=== PATIENT | female | born 1980 | race Caucasian/White ===

== ENCOUNTER 2016-12-30 14:21 | Emergency (ER) | payer SELFPAY ==
[~2016-12-30] VITALS: Ht 154.9 cm; Wt 81.6 kg
[2016-12-30 15:19] LABS: BILIRUBIN,URINE NEGATIVE (NEG); GLUCOSE,URINE NEGATIVE (NEG); NITRITE,URINE NEGATIVE (NEG); PROTEIN,URINE NEGATIVE (NEG-TRACE); UROBILINOGEN,URINE 0.2 mg/dL (0.2 mg/dL)
--- NOTE | 2016-12-30 15:31 | ED.ADGEN ---
Adult General Chief Complaint Chief Complaint: ABDOMINAL PAIN HPI HPI Patient is a 36 year old woman, history of irritable bowel syndrome, remote history of pancreatitis, status post cholecystectomy and appendectomy, who presents to the emergency department with a complaint of sudden onset of nausea , vomiting, and abdominal pain in the upper abdomen that began this afternoon. She states that it began around 1 PM, states that it is a crampy pain, that radiates to her back, associated with multiple episodes of emesis, food and fluid, no blood or bile. States her last bowel was last night around midnight, with loose stool, consistent with her typical bowel movements. Denies any fevers or chills, any chest pain or shortness breath, any weakness, numbness or tingling. Review of Systems Review of Systems Constitutional: Denies fever or chills. [] Eyes: Denies change in visual acuity. [] HENT: Denies nasal congestion or sore throat. [] Respiratory: Denies cough or shortness of breath. [] Cardiovascular: Denies chest pain or edema. [] GI: Abdominal pain, and the upper abdomen radiating to the back, associated with nausea, vomiting, no bloody stools or diarrhea. : Denies dysuria. [] Musculoskeletal: Denies back pain or joint pain. [] Integument: Denies rash. [] Neurologic: Denies headache, focal weakness or sensory changes. [] Endocrine: Denies polyuria or polydipsia. [] Lymphatic: Denies swollen glands. [] Psychiatric: Denies depression or anxiety. [] Current Medications Current Medications Current Medications Medications (Trade) Dose Ordered Sig/Farshad Start Time Stop Time Status Last Admin Dose Admin Azithromycin (Zithromax) 500 mg 1X ONCE 12/30/16 18:15 12/30/16 18:16 DC 12/30/16 18:22 500 MG Fentanyl Citrate (Fentanyl 2ml Vial) 50 mcg PRN Q15MIN PRN 12/30/16 15:30 12/30/16 19:06 DC 12/30/16 17:03 50 MCG Haloperidol Lactate (Haldol) 5 mg 1X ONCE 12/30/16 17:15 12/30/16 17:16 DC 12/30/16 17:34 5 MG Info (Do NOT chart on this entry -- for MONITORING) 1 each PRN DAILY PRN 12/30/16 16:00 12/30/16 19:06 DC Iohexol (Omnipaque 300 Mg/ml) 75 ml 1X ONCE 12/30/16 15:45 12/30/16 15:52 DC 12/30/16 15:45 75 ML Ketorolac Tromethamine (Toradol) 10 mg 1X ONCE 12/30/16 16:00 12/30/16 16:01 DC 12/30/16 16:21 10 MG Ondansetron HCl (Zofran) 4 mg 1X ONCE 12/30/16 16:00 12/30/16 16:01 DC 12/30/16 16:20 4 MG Sodium Chloride 1,000 ml @ 1,000 mls/hr Q1H 12/30/16 16:00 12/30/16 16:59 DC 12/30/16 16:19 1,000 MLS/HR Allergies Allergies Allergies Coded Allergies Type Severity Reaction Last Updated Verified aluminum hydroxide Allergy Severe ANAPHYLAXIS 12/30/16 Yes atropine Allergy Severe ANAPHYLAXIS 12/30/16 Yes calcium carbonate Allergy Severe ANAPHYLAXIS 12/30/16 Yes hyoscyamine Allergy Severe ANAPHYLAXIS 12/30/16 Yes lidocaine Allergy Severe ANAPHYLAXIS 12/30/16 Yes magnesium hydroxide Allergy Severe ANAPHYLAXIS 12/30/16 Yes phenobarbital Allergy Severe ANAPHYLAXIS 12/30/16 Yes scopolamine Allergy Severe ANAPHYLAXIS 12/30/16 Yes simethicone Allergy Severe ANAPHYLAXIS 12/30/16 Yes Penicillins Allergy Intermediate anaphylaxis 12/30/16 Yes aspirin Allergy Intermediate anaphlaxis 12/30/16 Yes magnesium citrate Adverse Reaction Intermediate confusion 12/30/16 Yes Physical Exam Physical Exam Constitutional: Well developed, well nourished, appears uncomfortable, non- toxic appearance. [] HENT: Normocephalic, atraumatic, bilateral external ears normal, oropharynx moist, no oral exudates, nose normal. [] Eyes: PERRLA, EOMI, conjunctiva normal, no discharge. [] Neck: Normal range of motion, no tenderness, supple, no stridor. [] Cardiovascular:Heart rate regular rhythm, no murmur, S1, S2, rubs or gallops. [] Lungs & Thorax: Bilateral breath sounds clear to auscultation, no wheezing, rhonchi, rales. No chest or crepitus or tenderness. [] Abdomen: Bowel sounds normal, soft, tenderness to palpation in the epigastric, periumbilical and upper abdominal region, no rebound, no rigidity, noted to have mild voluntary guarding, no masses, no pulsatile masses. [] Skin: Warm, dry, no erythema, no rash. [] Back: No tenderness, no CVA tenderness. [] Extremities: No tenderness, no cyanosis, no clubbing, ROM intact, no edema. Negative Homans sign. [] Neurologic: Alert and oriented X 3, normal motor function, normal sensory function, no focal deficits noted. [] Psychologic: Affect normal, judgement normal, mood normal. [] Current Patient Data Vital Signs Vital Signs Date Time Temp Pulse Resp B/P (MAP) Pulse Ox O2 Delivery O2 Flow Rate FiO2 12/30/16 17:58 62 96/51 (66) 98 Room Air 12/30/16 17:28 20 12/30/16 15:10 97.8 97.8 Lab Values Laboratory Tests Test 12/30/16 14:14 12/30/16 15:05 12/30/16 15:40 POC Urine HCG, Qualitative Hcg negative (Negative) Urine Collection Type Unknown Urine Color Yellow Urine Clarity Cloudy Urine pH 6.0 Urine Specific [place] 1.015 Urine Protein Negative mg/dL (NEG-TRACE) Urine Glucose (UA) Negative mg/dL (NEG) Urine Ketones (Stick) Negative mg/dL (NEG) Urine Blood Negative (NEG) Urine Nitrite Negative (NEG) Urine Bilirubin Negative (NEG) Urine Urobilinogen Dipstick 0.2 mg/dL (0.2 mg/dL) Urine Leukocyte Esterase Trace (NEG) Urine RBC 0 /HPF (0-2) Urine WBC 5-10 /HPF (0-4) Urine Squamous Epithelial Cells Mod /LPF Urine Bacteria Many /HPF (0-FEW) Urine Mucus Mod /LPF Urine Opiates Screen Neg (NEG) Urine Methadone Screen Neg (NEG) Urine Barbiturates Neg (NEG) Urine Phencyclidine Screen Neg (NEG) Urine Amphetamine/Methamphetamine Neg (NEG) Urine Benzodiazepines Screen Neg (NEG) Urine Cocaine Screen Neg (NEG) Urine Cannabinoids Screen Pos (NEG) Urine Ethyl Alcohol Neg (NEG) White Blood Count 8.4 x10^3/uL (4.0-11.0) Red Blood Count 4.07 x10^6/uL (3.50-5.40) Hemoglobin 12.5 g/dL (12.0-15.5) Hematocrit 37.3 % (36.0-47.0) Mean Corpuscular Volume 92 fL (79-100) Mean Corpuscular Hemoglobin 31 pg (25-35) Mean Corpuscular Hemoglobin Concent 34 g/dL (31-37) Red Cell Distribution Width 15.8 % (11.5-14.5) H Platelet Count 251 x10^3/uL (140-400) Neutrophils (%) (Auto) 74 % (31-73) H Lymphocytes (%) (Auto) 17 % (24-48) L Monocytes (%) (Auto) 6 % (0-9) Eosinophils (%) (Auto) 2 % (0-3) Basophils (%) (Auto) 1 % (0-3) Neutrophils # (Auto) 6.2 x10^3uL (1.8-7.7) Lymphocytes # (Auto) 1.4 x10^3/uL (1.0-4.8) Monocytes # (Auto) 0.5 x10^3/uL (0.0-1.1) Eosinophils # (Auto) 0.2 x10^3/uL (0.0-0.7) Basophils # (Auto) 0.1 x10^3/uL (0.0-0.2) Sodium Level 141 mmol/L (136-145) Potassium Level 3.8 mmol/L (3.5-5.1) Chloride Level 104 mmol/L (98-107) Carbon Dioxide Level 27 mmol/L (21-32) Anion Gap 10 (6-14) Blood Urea Nitrogen 7 mg/dL (7-20) Creatinine 0.7 mg/dL (0.6-1.0) Estimated GFR (Cockcroft-Gault) 93.6 BUN/Creatinine Ratio 10 (6-20) Glucose Level 95 mg/dL (70-99) Calcium Level 8.4 mg/dL (8.5-10.1) L Total Bilirubin 0.5 mg/dL (0.2-1.0) Aspartate Amino Transferase (AST) 13 U/L (15-37) L Alanine Aminotransferase (ALT) 32 U/L (14-59) Alkaline Phosphatase 102 U/L (46-116) Total Protein 7.3 g/dL (6.4-8.2) Albumin 3.5 g/dL (3.4-5.0) Albumin/Globulin Ratio 0.9 (1.0-1.7) L Lipase 89 U/L (73-393) Laboratory Tests 12/30/16 15:40 Laboratory Tests 12/30/16 15:40 EKG EKG Not indicated. [] Radiology/Procedures Radiology/Procedures [][facility] [address] [place] [address] IMAGING REPORT Signed PATIENT: CLEMENTE LEE ACCOUNT: [id number] : 1980 LOCATION: ER AGE: 36 SEX: F EXAM STATUS: REG ER ORD. PHYSICIAN: FLAVIO ISAACS DO REASON: upper abd pain radiating to back/n/v PROCEDURE: CT ABD PELV W/ IV CONTRST ONLY CT scan of the abdomen and pelvis with contrast 12/30/2016 Clinical history: Abdominal pain. Technique: After the intravenous administration of 75 cc of Omnipaque 300, contiguous, 5 mm axial sections were obtained through the abdomen and pelvis. One or more of the following individualized dose reduction techniques were utilized for this study: 1. Automated exposure control. 2. Adjustment of the mA and/or kV according to patient size. 3. Use of iterative reconstruction technique. Findings: Images through the lung bases demonstrate an area of infiltrate involving the right lower lobe. The liver parenchyma has a decreased attenuation consistent with mild fatty infiltration. The spleen, pancreas, adrenal glands and kidneys are within normal limits. The abdominal aorta tapers normally. The Gallbladder not visualized consistent with a cholecystectomy. No free fluid or free air is seen within the abdomen. There is no evidence of bowel obstruction. The appendix is not visualized. No inflammatory changes are seen surrounding the cecum. Images through the pelvis demonstrate a urinary bladder distended with urine. Calcifications are seen within the pelvis consistent with phleboliths. The Patient appears to be post hysterectomy. A 2.4 cm oval-shaped low-attenuation structure is seen within the left adnexa which likely represents a dominant follicle. No free fluid is seen. Minimal S shaped curvature of the thoracolumbar spine is noted. Impression: 1. Right lower lobe infiltrate consistent with pneumonia. 2. No acute abnormality is seen involving the abdomen or pelvis. DICTATED and SIGNED BY: LIGIA YANG MD DATE: 12/30/16 7742 CC: FLAVIO ISAACS DO; NO PCP ~ Course & Med Decision Making Course & Med Decision Making Pertinent Labs and Imaging studies reviewed. (See chart for details) Patient's telemetry studies and abdominal imaging not reveal any concerning findings, however noted to have infiltrate in the right lower lobe patient is feeling better on reevaluation, remained stable in sinus rhythm on the monitor with oxygen saturation of 98-99%.. Based the patient's symptoms, in conjunction with lower lobe infiltrate, this pneumonia could be irritating the stomach and causing the symptoms the patient is experiencing. I did discuss this with the patient, she is a smoker, and states that she is having some productive cough for the past several days. Has not had any contact with a healthcare workers or [facility] residence, no recent antibiotics, therefore treat to declare pneumonia, discharged with smoking cessation instructions, inhaler, and treat pain with cyclobenzaprine and [id number] medications. Patient given first dose of azithromycin in the ED without issue, all prescriptions as stated, clear and detailed return instructions and precautions. Patient discharged home in stable condition with plan as above, along with a list of available primary care providers in the area. Dragon Disclaimer Dragon Disclaimer This electronic medical record was generated, in whole or in part, using a voice recognition dictation system. Departure Impression: Primary Impression: Community acquired pneumonia Disposition: HOME, SELF-CARE Condition: IMPROVED Scripts Albuterol Sulfate (Proair Hfa) 8.5 Gm Hfa.aer.ad 8.5 GM IH PRN Q4HRS Y for COUGH, #1 INHALER Prov: FLAVIO ISAACS DO 12/30/16 Cyclobenzaprine Hcl (CYCLOBENZAPRINE HCL) 10 Mg Tablet 10 MG PO TID Y for PAIN, #12 TAB Prov: FLAVIO ISAACS DO 12/30/16 Azithromycin (AZITHROMYCIN TABLET) 250 Mg Tablet 250 MG PO DAILY for ANTI-BIOTIC, #4 TAB 0 Refills Prov: FLAVIO ISAACS DO 12/30/16 FLAVIO ISAACS DO Dec 30, 2016 15:31
[2016-12-30 15:36] LABS: BACTERIA,URINE MANY /HPF (0-FEW); RBC,URINE 0 /HPF (0-2); SQUAMOUS EPITHELIAL CELL,UR MOD /LPF
[2016-12-30] MEDS ORDERED: IOHEXOL 300 MG/ML 75 ML VIAL IV ONE (15:45)
[2016-12-30 15:49] LABS: BARBITURATES NEG (NEG); BENZODIAZEPINES NEG (NEG); CANNABINOIDS POS (NEG); COCAINE NEG (NEG); METHADONE NEG (NEG); OPIATES NEG (NEG); PHENCYCLIDINE NEG (NEG)
[2016-12-30 15:56] LABS: BASO # 0.1 x10^3/uL (0.0-0.2); BASO % 1 % (0-3); EOS % 2 % (0-3); HEMATOCRIT 37.3 % (36.0-47.0); HEMOGLOBIN 12.5 g/dL (12.0-15.5); LYMPH # 1.4 x10^3/uL (1.0-4.8); LYMPH % 17 % (24-48); MEAN CORPUSCULAR HEMOGLOBIN 31 pg (25-35); MEAN CORPUSCULAR HGB CONC 34 g/dL (31-37); MEAN CORPUSCULAR VOLUME 92 fL (79-100); MONO % 6 % (0-9); NEUT % 74 % (31-73); PLATELET COUNT 251 x10^3/uL (140-400); RED BLOOD COUNT 4.07 x10^6/uL (3.50-5.40); RED CELL DISTRIBUTION WIDTH 15.8 % (11.5-14.5); WHITE BLOOD COUNT 8.4 x10^3/uL (4.0-11.0)
[2016-12-30] MEDS ORDERED: IV NORMAL SALINE 1000ML BAG 1,000 ML IV SCH (16:00)
[2016-12-30] MEDS ORDERED: KETOROLAC TROMETHAMINE 30 MG/ML INJ. IV ONE (16:00)
[2016-12-30] MEDS ORDERED: CONTRAST GIVEN MC PRN (16:00)
[2016-12-30] MEDS ORDERED: ONDANSETRON PF 4 MG/2 ML VIAL. IV ONE (16:00)
[2016-12-30 16:10] LABS: CALCIUM 8.4 mg/dL (8.5-10.1); CREATININE 0.7 mg/dL (0.6-1.0); GFR 93.6; POTASSIUM 3.8 mmol/L (3.5-5.1)
[2016-12-30 16:16] LABS: ALBUMIN 3.5 g/dL (3.4-5.0); ALBUMIN/GLOBULIN RATIO 0.9 (1.0-1.7); TOTAL BILIRUBIN 0.5 mg/dL (0.2-1.0); TOTAL PROTEIN 7.3 g/dL (6.4-8.2)
[2016-12-30] MEDS: fentaNYL PF VIAL 100 MCG/2 ML VIAL IV PRN ×2 (16:23→17:03)
--- NOTE | 2016-12-30 17:12 | RAD ---
CT scan of the abdomen and pelvis with contrast 12/30/2016 Clinical history: Abdominal pain. Technique: After the intravenous administration of 75 cc of Omnipaque 300, contiguous, 5 mm axial sections were obtained through the abdomen and pelvis. One or more of the following individualized dose reduction techniques were utilized for this study: 1. Automated exposure control. 2. Adjustment of the mA and/or kV according to patient size. 3. Use of iterative reconstruction technique. Findings: Images through the lung bases demonstrate an area of infiltrate involving the right lower lobe. The liver parenchyma has a decreased attenuation consistent with mild fatty infiltration. The spleen, pancreas, adrenal glands and kidneys are within normal limits. The abdominal aorta tapers normally. The Gallbladder not visualized consistent with a cholecystectomy. No free fluid or free air is seen within the abdomen. There is no evidence of bowel obstruction. The appendix is not visualized. No inflammatory changes are seen surrounding the cecum. Images through the pelvis demonstrate a urinary bladder distended with urine. Calcifications are seen within the pelvis consistent with phleboliths. The Patient appears to be post hysterectomy. A 2.4 cm oval-shaped low-attenuation structure is seen within the left adnexa which likely represents a dominant follicle. No free fluid is seen. Minimal S shaped curvature of the thoracolumbar spine is noted. Impression: 1. Right lower lobe infiltrate consistent with pneumonia. 2. No acute abnormality is seen involving the abdomen or pelvis.
[2016-12-30] MEDS ORDERED: HALOPERIDOL LACTATE 5 MG/ML VIAL. IVP ONE (17:15)
[2016-12-30 17:58] VITALS: BP 96/51
[2016-12-30] MEDS ORDERED: AZITHROMYCIN 250 MG TABLET. PO ONE (18:15)
[2016-12-30] MEDS ORDERED: AZIT250T6 PO (18:52)
[2016-12-30] MEDS ORDERED: ALBU8.5H8 IH (18:52)
[2016-12-30] MEDS ORDERED: CYCL10TA2 PO (18:52)
== END 2016-12-30 19:03 | disposition home or self-care (01) ==
LOC: ER 14:21
DX: J18.9 Pneumonia, unspecified organism (principal); R10.10 Upper abdominal pain, unspecified; R10.13 Epigastric pain; R10.33 Periumbilical pain; F17.200 Nicotine dependence, unspecified, uncomplicated; K58.9 Irritable bowel syndrome, unspecified; Z88.0 Allergy status to penicillin; Z90.49 Acquired absence of other specified parts of digestive tract; Z88.8 Allergy status to other drugs, medicaments and biological substances; Z88.4 Allergy status to anesthetic agent; Z88.6 Allergy status to analgesic agent
CPT/HCPCS: 36415; 74177; 80053; 80307; 81001; 81025; 83690; 85025; 96361; 96374; 96375; 96376; 99285; J1630; J1885; J2405; J3010; J7030; Q0144; Q9967; G0479

== ENCOUNTER 2017-03-19 17:16 | Emergency (ER) | payer SELFPAY ==
[~2017-03-19] VITALS: Ht 154.9 cm; Wt 83.5 kg
[~2017-03-19 17:16] MED LIST: ALBU8.5H8 IH; AZIT250T6 PO; CYCL10TA2 PO
[2017-03-19 18:27] LABS: BASO # 0.1 x10^3/uL (0.0-0.2); BASO % 1 % (0-3); EOS % 3 % (0-3); HEMATOCRIT 39.7 % (36.0-47.0); HEMOGLOBIN 13.4 g/dL (12.0-15.5); LYMPH % 22 % (24-48); MEAN CORPUSCULAR HEMOGLOBIN 31 pg (25-35); MEAN CORPUSCULAR HGB CONC 34 g/dL (31-37); MEAN CORPUSCULAR VOLUME 93 fL (79-100); MONO % 5 % (0-9); NEUT % 70 % (31-73); PLATELET COUNT 278 x10^3/uL (140-400); RED BLOOD COUNT 4.28 x10^6/uL (3.50-5.40); RED CELL DISTRIBUTION WIDTH 15.2 % (11.5-14.5); WHITE BLOOD COUNT 9.3 x10^3/uL (4.0-11.0)
[2017-03-19] MEDS ORDERED: KETOROLAC 30 MG/ML INJ. ONE (18:28)
[2017-03-19] MEDS ORDERED: IV NORMAL SALINE 1000ML BAG 1,000 ML IV ONE (18:30)
[2017-03-19] MEDS ORDERED: KETOROLAC 30 MG/ML INJ. IV ONE (18:30)
[2017-03-19 18:36] LABS: CALCIUM 8.7 mg/dL (8.5-10.1); CREATININE 0.8 mg/dL (0.6-1.0); GFR 80.3; POTASSIUM 3.6 mmol/L (3.5-5.1)
[2017-03-19] MEDS ORDERED: MORPHINE SULFATE 4 MG/ML DISP.SYRIN. IV ONE (18:45)
[2017-03-19 18:47] LABS: BILIRUBIN,URINE NEGATIVE (NEG); GLUCOSE,URINE NEGATIVE (NEG); NITRITE,URINE NEGATIVE (NEG); PROTEIN,URINE NEGATIVE (NEG-TRACE)
[2017-03-19 18:57] LABS: BACTERIA,URINE MODERATE /HPF (0-FEW); SQUAMOUS EPITHELIAL CELL,UR MANY /LPF
[2017-03-19 18:58] LABS: NEG OBC UR NEG; POS OBC UR POS
--- NOTE | 2017-03-19 19:30 | RAD ---
EXAM: Abdomen and pelvis CT without intravenous contrast. HISTORY: Pain. TECHNIQUE: Computed tomographic images of the abdomen and pelvis were obtained without contrast. Multiplanar reformatting was performed. *One or more of the following individualized dose reduction techniques were utilized for this examination: 1. Automated exposure control. 2. Adjustment of the mA and/or kV according to patient size. 3. Use of iterative reconstruction technique. COMPARISON: None. FINDINGS: Evaluation of the lower thorax demonstrates no infiltrate or effusion. No hepatic lesion is seen. The gallbladder is surgically absent. The pancreas, spleen and adrenal glands are unremarkable. There is a 4 mm nonobstructing stone within the anterior right kidney. The bladder is decompressed. There are colonic diverticula. There is diffusely increased colonic mural wall fat, a finding which can be seen as a sequela of prior inflammation. There is no convincing evidence of active colitis. There is a small fat-containing infraumbilical hernia to the left of midline. There is also increased fat within the right inguinal canal without significant herniation. No pathologically enlarged lymph node is seen. The uterus is surgically absent. The ovaries are unremarkable. There is no suspicious osseous lesion. There is no pathologically enlarged lymph node. IMPRESSION: 1. No acute abdominal or pelvic finding. 2. 4 mm nonobstructing right renal calcification. 3. Few colonic diverticula. 4. Slight increased colonic mural fat, a finding which can be seen as a sequela of prior inflammation. There is no evidence of active colitis. Electronically signed by: Geovanna Sauceda MD (03/19/2017 7:27 PM) [facility]
[2017-03-19] MEDS ORDERED: MORPHINE SULFATE 2 MG/ML DISP.SYRIN. IV ONE (20:00)
[2017-03-19] MEDS ORDERED: ONDANSETRON PF 4 MG/2 ML VIAL. IV ONE (20:00)
--- NOTE | 2017-03-19 20:02 | PHYS DOC ---
Past Medical History Past Medical History: Anxiety, Bipolar, Cancer, Depression, TIA, Other Additional Past Medical Histor: ptsd, ibs, ALL, Past Surgical History: Appendectomy, Cholecystectomy, Other Additional Past Surgical Histo: partial hysterectomy, bladder lift, rt ankle surgery, stent in left shoulde Alcohol Use: Rarely Drug Use: Marijuana Adult General Chief Complaint Chief Complaint: ABDOMINAL PAIN HPI HPI Patient is a 36 year old female who presents with complaints of abdominal pain that started just prior to arrival.. Patient describes the pain as going from the left side of her body across. Patient has been her usual state of health. Patient denies any vomiting, fevers, chills, trauma, rashes, diarrhea. No history of recent sick contacts. Review of Systems Review of Systems Constitutional: Denies fever or chills [] HENT: Denies pain Respiratory: Denies cough or shortness of breath [] Cardiovascular: No chest pain GI: Denies vomiting, bloody stools or diarrhea . Distal abdominal pain and nausea : Denies dysuria or hematuria. Yes to dark urine Musculoskeletal: Denies back pain or joint pain [] Integument: Denies rash or skin lesions [] Neurologic: Denies headache, focal weakness or sensory changes [] Endocrine: Denies polyuria or polydipsia [] Current Medications Current Medications Current Medications Medications (Trade) Dose Ordered Sig/Farshad Start Time Stop Time Status Last Admin Dose Admin Ketorolac Tromethamine (Toradol) 30 mg STK-MED ONCE 03/19/17 18:28 03/19/17 18:37 DC Morphine Sulfate 2 mg 1X ONCE 03/19/17 20:00 03/19/17 20:01 UNV Ondansetron HCl (Zofran) 4 mg 1X ONCE 03/19/17 20:00 03/19/17 20:01 UNV Sodium Chloride 1,000 ml @ 1,000 mls/hr 1X ONCE 03/19/17 18:30 03/19/17 19:29 DC 03/19/17 18:32 1,000 MLS/HR Allergies Allergies Allergies Coded Allergies Type Severity Reaction Last Updated Verified aluminum hydroxide Allergy Severe ANAPHYLAXIS 12/30/16 Yes atropine Allergy Severe ANAPHYLAXIS 12/30/16 Yes calcium carbonate Allergy Severe ANAPHYLAXIS 12/30/16 Yes hyoscyamine Allergy Severe ANAPHYLAXIS 12/30/16 Yes lidocaine Allergy Severe ANAPHYLAXIS 12/30/16 Yes magnesium hydroxide Allergy Severe ANAPHYLAXIS 12/30/16 Yes phenobarbital Allergy Severe ANAPHYLAXIS 12/30/16 Yes scopolamine Allergy Severe ANAPHYLAXIS 12/30/16 Yes simethicone Allergy Severe ANAPHYLAXIS 12/30/16 Yes Penicillins Allergy Intermediate anaphylaxis 12/30/16 Yes aspirin Allergy Intermediate anaphlaxis 12/30/16 Yes magnesium citrate Adverse Reaction Intermediate confusion 12/30/16 Yes Physical Exam Physical Exam Constitutional: Well developed, well nourished, mild distress, non-toxic appearance. [] HENT: Normocephalic, atraumatic, bilateral external ears normal, oropharynx dry , no oral exudates, nose normal. [] Eyes: EOMI, conjunctiva normal, no discharge. [] Neck: Normal range of motion, no tenderness, supple, no stridor. [] Cardiovascular:Heart rate regular rhythm, no murmur, equal pulses, normal perfusion Lungs & Thorax: Bilateral breath sounds clear to auscultation, no tachypnea Abdomen: Bowel sounds normal, soft, mild diffuse tenderness in the upper abdomen without guarding or rebound, no masses, no pulsatile masses. [] Skin: Warm, dry, no erythema, no rash. [] Back: No tenderness, no CVA tenderness. [] Extremities: No tenderness, no cyanosis, no DVT, ROM intact, no edema. [] Neurologic: Alert and oriented X 3, normal motor function,, no focal deficits noted. [] Psychologic: Affect normal, judgement normal, mood normal. [] Current Patient Data Vital Signs Vital Signs Date Time Temp Pulse Resp B/P (MAP) Pulse Ox O2 Delivery O2 Flow Rate FiO2 03/19/17 17:16 98.2 75 20 114/80 (91) 95 Room Air 98.2 Lab Values Laboratory Tests Test 03/19/17 18:15 03/19/17 18:35 White Blood Count 9.3 x10^3/uL (4.0-11.0) Red Blood Count 4.28 x10^6/uL (3.50-5.40) Hemoglobin 13.4 g/dL (12.0-15.5) Hematocrit 39.7 % (36.0-47.0) Mean Corpuscular Volume 93 fL (79-100) Mean Corpuscular Hemoglobin 31 pg (25-35) Mean Corpuscular Hemoglobin Concent 34 g/dL (31-37) Red Cell Distribution Width 15.2 % (11.5-14.5) H Platelet Count 278 x10^3/uL (140-400) Neutrophils (%) (Auto) 70 % (31-73) Lymphocytes (%) (Auto) 22 % (24-48) L Monocytes (%) (Auto) 5 % (0-9) Eosinophils (%) (Auto) 3 % (0-3) Basophils (%) (Auto) 1 % (0-3) Neutrophils # (Auto) 6.5 x10^3uL (1.8-7.7) Lymphocytes # (Auto) 2.0 x10^3/uL (1.0-4.8) Monocytes # (Auto) 0.4 x10^3/uL (0.0-1.1) Eosinophils # (Auto) 0.3 x10^3/uL (0.0-0.7) Basophils # (Auto) 0.1 x10^3/uL (0.0-0.2) Sodium Level 139 mmol/L (136-145) Potassium Level 3.6 mmol/L (3.5-5.1) Chloride Level 103 mmol/L (98-107) Carbon Dioxide Level 26 mmol/L (21-32) Anion Gap 10 (6-14) Blood Urea Nitrogen 12 mg/dL (7-20) Creatinine 0.8 mg/dL (0.6-1.0) Estimated GFR (Cockcroft-Gault) 80.3 Glucose Level 89 mg/dL (70-99) Calcium Level 8.7 mg/dL (8.5-10.1) Urine Collection Type Unknown Urine Color Yellow Urine Clarity Cloudy Urine pH 7.0 Urine Specific [place] 1.020 Urine Protein Negative mg/dL (NEG-TRACE) Urine Glucose (UA) Negative mg/dL (NEG) Urine Ketones (Stick) 40 mg/dL (NEG) Urine Blood Negative (NEG) Urine Nitrite Negative (NEG) Urine Bilirubin Negative (NEG) Urine Urobilinogen Dipstick 1.0 mg/dL (0.2 mg/dL) Urine Leukocyte Esterase Trace (NEG) Urine RBC 1-2 /HPF (0-2) Urine WBC 1-4 /HPF (0-4) Urine Squamous Epithelial Cells Many /LPF Urine Bacteria Moderate /HPF (0-FEW) Urine Mucus Marked /LPF Urine Test Negative (NEG) Laboratory Tests 03/19/17 18:15 Laboratory Tests 03/19/17 18:15 EKG EKG [] Radiology/Procedures Radiology/Procedures IMPRESSION: 1. No acute abdominal or pelvic finding. 2. 4 mm nonobstructing right renal calcification. 3. Few colonic diverticula. 4. Slight increased colonic mural fat, a finding which can be seen as a sequela of prior inflammation. There is no evidence of active colitis.[] Course & Med Decision Making Course & Med Decision Making Pertinent Labs and Imaging studies reviewed. (See chart for details) 2000 patient in no distress, vital signs are unremarkable, pain well controlled. Patient agrees to follow-up with her doctor for recheck and reevaluation tomorrow. [] Dragon Disclaimer Dragon Disclaimer This electronic medical record was generated, in whole or in part, using a voice recognition dictation system. Departure Departure Impression: Primary Impression: Abdominal pain Disposition: HOME, SELF-CARE Condition: IMPROVED Referrals: NO PCP (PCP) Please follow-up with your doctor or one of the clinics in the list provided to you tomorrow for recheck and reevaluation Patient Instructions: Abdominal Pain (Nonspecific) Scripts Acetaminophen With Codeine (ACETAMINOPHEN-COD #3 TABLET) 1 Each Tablet 1 TAB PO PRN Q6HRS Y for PAIN for 2 Days, #8 TAB Prov: Francis LANE MD 03/19/17 Sucralfate (CARAFATE) 1 Gm/10 Ml Oral.susp 10 ML PO QID, #1200 ML Prov: Francis LANE MD 03/19/[address] MD Mar 19, 2017 20:01
[2017-03-19] MEDS ORDERED: SUCR1ORA5 PO (20:07)
[2017-03-19] MEDS ORDERED: ACET1TAB33 PO (20:07)
[2017-03-19 20:25] VITALS: BP 121/64
== END 2017-03-19 21:03 | disposition home or self-care (01) ==
LOC: ER 17:16
DX: R10.10 Upper abdominal pain, unspecified (principal); R11.0 Nausea; F41.9 Anxiety disorder, unspecified; F31.9 Bipolar disorder, unspecified; F43.10 Post-traumatic stress disorder, unspecified; K58.9 Irritable bowel syndrome, unspecified; Z86.73 Personal history of transient ischemic attack (TIA), and cerebral infarction without residual deficits; Z88.0 Allergy status to penicillin; Z90.711 Acquired absence of uterus with remaining cervical stump; Z88.6 Allergy status to analgesic agent; Z88.4 Allergy status to anesthetic agent; Z88.8 Allergy status to other drugs, medicaments and biological substances
CPT/HCPCS: 36415; 74176; 80048; 81001; 81025; 85025; 87086; 96361; 96374; 96375; 96376; 99285; J2270; J2405; J7030

== ENCOUNTER 2017-08-14 20:40 | Emergency (ER) | payer SELFPAY ==
[2017-08-14 21:13] LABS: ADD MAN DIFF? NO
[2017-08-14 21:15] LABS: BASO # 0.1 x10^3/uL (0.0-0.2); BASO % 1 % (0-3); EOS # 0.2 x10^3/uL (0.0-0.7); EOS % 3 % (0-3); HEMATOCRIT 35.5 % (36.0-47.0); HEMOGLOBIN 11.9 g/dL (12.0-15.5); LYMPH # 2.7 x10^3/uL (1.0-4.8); LYMPH % 32 % (24-48); MEAN CORPUSCULAR HEMOGLOBIN 31 pg (25-35); MEAN CORPUSCULAR HGB CONC 34 g/dL (31-37); MEAN CORPUSCULAR VOLUME 93 fL (79-100); MONO # 0.4 x10^3/uL (0.0-1.1); MONO % 5 % (0-9); NEUT # 4.8 x10^3uL (1.8-7.7); NEUT % 58 % (31-73); PLATELET COUNT 277 x10^3/uL (140-400); RED BLOOD COUNT 3.83 x10^6/uL (3.50-5.40); RED CELL DISTRIBUTION WIDTH 14.6 % (11.5-14.5); WHITE BLOOD COUNT 8.3 x10^3/uL (4.0-11.0)
[2017-08-14 21:25] LABS: ANION GAP 9 (6-14); BLOOD UREA NITROGEN 15 mg/dL (7-20); CARBON DIOXIDE 27 mmol/L (21-32); CHLORIDE 106 mmol/L (98-107); CREATININE 0.7 mg/dL (0.6-1.0); GFR 93.2; GLUCOSE 113 mg/dL (70-99); POTASSIUM 3.5 mmol/L (3.5-5.1); SODIUM 142 mmol/L (136-145)
[2017-08-14] MEDS: ONDANSETRON PF 4 MG/2 ML VIAL. IV (21:30)
[2017-08-14] MEDS: fentaNYL PF VIAL 100 MCG/2 ML VIAL IV ×2 (21:30→22:17)
[2017-08-14 21:31] LABS: ALBUMIN 3.3 g/dL (3.4-5.0); ALK PHOS 82 U/L (46-116); ALT (SGPT) 29 U/L (14-59); AST (SGOT) 14 U/L (15-37); DIRECT BILIRUBIN 0.1 mg/dL (0.0-0.2); LIPASE 138 U/L (73-393); TOTAL BILIRUBIN 0.3 mg/dL (0.2-1.0); TOTAL PROTEIN 6.8 g/dL (6.4-8.2)
[2017-08-14 21:34] LABS: TROPONINI < 0.017 ng/mL (0.000-0.055)
[2017-08-14 21:58] LABS: BILIRUBIN,URINE NEGATIVE (NEG); CLARITY,URINE CLOUDY; COLOR,URINE YELLOW; GLUCOSE,URINE NEGATIVE (NEG); NITRITE,URINE NEGATIVE (NEG); PH,URINE 7.5; PROTEIN,URINE NEGATIVE (NEG-TRACE); UROBILINOGEN,URINE 0.2 mg/dL (0.2 mg/dL)
[2017-08-14 22:12] LABS: BACTERIA,URINE FEW /HPF (0-FEW); RBC,URINE OCC /HPF (0-2); SQUAMOUS EPITHELIAL CELL,UR MOD /LPF; WBC,URINE OCC /HPF (0-4)
[2017-08-14 22:13] LABS: AMORPHOUS SEDIMENT,UR PRESENT /HPF
== END 2017-08-14 22:57 | disposition home or self-care (01) ==
LOC: ER 20:40
DX: R07.89 Other chest pain (principal); F31.9 Bipolar disorder, unspecified; Z86.73 Personal history of transient ischemic attack (TIA), and cerebral infarction without residual deficits; F43.10 Post-traumatic stress disorder, unspecified; K58.9 Irritable bowel syndrome, unspecified; F12.10 Cannabis abuse, uncomplicated; Z88.0 Allergy status to penicillin; Z88.4 Allergy status to anesthetic agent; Z88.6 Allergy status to analgesic agent; Z88.8 Allergy status to other drugs, medicaments and biological substances
CPT/HCPCS: 36415; 71045; 80048; 80076; 81001; 83690; 84484; 85025; 93005; 96374; 96375; 96376; 99285-25; J2405; J3010

== ENCOUNTER 2017-09-21 22:57 | Emergency (ER) | payer SELFPAY ==
[2017-09-21] MEDS: IOHEXOL 300 MG/ML 50 ML VIAL. PO (01:20)
[2017-09-21 23:31] LABS: BILIRUBIN,URINE NEGATIVE (NEG); CLARITY,URINE CLEAR; COLOR,URINE YELLOW; GLUCOSE,URINE NEGATIVE (NEG); NITRITE,URINE NEGATIVE (NEG); PH,URINE 5.5; PROTEIN,URINE NEGATIVE (NEG-TRACE); UROBILINOGEN,URINE 0.2 mg/dL (0.2 mg/dL)
[2017-09-21 23:36] LABS: BACTERIA,URINE FEW /HPF (0-FEW); SQUAMOUS EPITHELIAL CELL,UR MOD /LPF; WBC,URINE OCC /HPF (0-4)
[2017-09-21] MEDS ORDERED: IOHEXOL 240 MG/ML 100 ML VIAL. IV (23:45)
[2017-09-21] MEDS ORDERED: CONTRAST GIVEN MC (23:45)
[2017-09-21 23:50] LABS: ADD MAN DIFF? NO
[2017-09-21 23:51] LABS: BASO # 0.1 x10^3/uL (0.0-0.2); BASO % 1 % (0-3); EOS # 0.2 x10^3/uL (0.0-0.7); EOS % 2 % (0-3); HEMATOCRIT 36.5 % (36.0-47.0); HEMOGLOBIN 12.7 g/dL (12.0-15.5); LYMPH # 2.6 x10^3/uL (1.0-4.8); LYMPH % 26 % (24-48); MEAN CORPUSCULAR HEMOGLOBIN 32 pg (25-35); MEAN CORPUSCULAR HGB CONC 35 g/dL (31-37); MEAN CORPUSCULAR VOLUME 93 fL (79-100); MONO # 0.7 x10^3/uL (0.0-1.1); MONO % 7 % (0-9); NEUT # 6.5 x10^3uL (1.8-7.7); NEUT % 64 % (31-73); PLATELET COUNT 316 x10^3/uL (140-400); RED BLOOD COUNT 3.94 x10^6/uL (3.50-5.40); RED CELL DISTRIBUTION WIDTH 15.1 % (11.5-14.5); WHITE BLOOD COUNT 10.1 x10^3/uL (4.0-11.0)
[2017-09-21] MEDS ORDERED: IOHEXOL 240 MG/ML 50ML VIAL. (23:56)
[2017-09-21] MEDS ORDERED: IOHEXOL 300 MG/ML 100ML VIAL. (23:56)
[2017-09-22 00:04] LABS: ANION GAP 12 (6-14); BLOOD UREA NITROGEN 18 mg/dL (7-20); BUN/CREATININE RATIO 30 (6-20); CALCIUM 9.1 mg/dL (8.5-10.1); CARBON DIOXIDE 27 mmol/L (21-32); CHLORIDE 103 mmol/L (98-107); CREATININE 0.6 mg/dL (0.6-1.0); GFR 111.3; GLUCOSE 96 mg/dL (70-99); POTASSIUM 3.8 mmol/L (3.5-5.1); SODIUM 142 mmol/L (136-145)
[2017-09-22] MEDS: IV NORMAL SALINE 1000ML BAG 1,000 ML IV (00:05)
[2017-09-22] MEDS: FAMOTIDINE 20 MG/2 ML VIAL IVP (00:05)
[2017-09-22] MEDS: ONDANSETRON PF 4 MG/2 ML VIAL. IV (00:05)
[2017-09-22 00:10] LABS: ALBUMIN 3.6 g/dL (3.4-5.0); ALK PHOS 84 U/L (46-116); ALT (SGPT) 22 U/L (14-59); AST (SGOT) 11 U/L (15-37); LIPASE 134 U/L (73-393); TOTAL BILIRUBIN 0.3 mg/dL (0.2-1.0); TOTAL PROTEIN 7.2 g/dL (6.4-8.2)
[2017-09-22 00:11] LABS: LACTIC ACID 1.3 mmol/L (0.4-2.0)
[2017-09-22 00:12] LABS: TROPONINI < 0.017 ng/mL (0.000-0.055)
[2017-09-22] MEDS: fentaNYL PF VIAL 100 MCG/2 ML VIAL IV (00:17)
== END 2017-09-22 02:19 | disposition home or self-care (01) ==
LOC: ER 09-22 02:19
DX: K31.84 Gastroparesis (principal); R10.12 Left upper quadrant pain; F12.10 Cannabis abuse, uncomplicated; F41.9 Anxiety disorder, unspecified; F32.9 Major depressive disorder, single episode, unspecified; Z90.49 Acquired absence of other specified parts of digestive tract; Z90.711 Acquired absence of uterus with remaining cervical stump; Z88.6 Allergy status to analgesic agent; Z88.0 Allergy status to penicillin; Z88.8 Allergy status to other drugs, medicaments and biological substances; Z86.73 Personal history of transient ischemic attack (TIA), and cerebral infarction without residual deficits
CPT/HCPCS: 36415; 74177; 80053; 81001; 83605; 83690; 84484; 85025; 93005; 96361; 96374; 96375; 99285-25; J2405; J3010; J7030; Q9967; S0028

== ENCOUNTER 2017-11-09 06:33 | Emergency (ER) | payer SELFPAY ==
[2017-11-09] MEDS ORDERED: KETOROLAC 30 MG/ML INJ. IV (07:00)
[2017-11-09] MEDS ORDERED: 0.9 % SODIUM CHLORIDE 10 ML DISP.SYRIN. IV (07:00)
[2017-11-09 07:18] LABS: BILIRUBIN,URINE NEGATIVE (NEG); CLARITY,URINE CLEAR; COLOR,URINE YELLOW; GLUCOSE,URINE NEGATIVE (NEG); NITRITE,URINE NEGATIVE (NEG); PROTEIN,URINE NEGATIVE (NEG-TRACE)
[2017-11-09 07:24] LABS: ADD MAN DIFF? NO
[2017-11-09] MEDS: IV NORMAL SALINE 1000ML BAG 1,000 ML IV (07:26)
[2017-11-09] MEDS: ONDANSETRON PF 4 MG/2 ML VIAL. IV (07:28)
[2017-11-09] MEDS: MORPHINE SULFATE 4 MG/ML DISP.SYRIN. IV (07:30)
[2017-11-09 07:43] LABS: BACTERIA,URINE 0 /HPF (0-FEW); RBC,URINE OCC /HPF (0-2); SQUAMOUS EPITHELIAL CELL,UR OCC /LPF; WBC,URINE 0 /HPF (0-4)
[2017-11-09 07:44] LABS: ANION GAP 5 (6-14); BLOOD UREA NITROGEN 16 mg/dL (7-20); BUN/CREATININE RATIO 23 (6-20); CALCIUM 8.2 mg/dL (8.5-10.1); CARBON DIOXIDE 25 mmol/L (21-32); CHLORIDE 106 mmol/L (98-107); CREATININE 0.7 mg/dL (0.6-1.0); GFR 93.2; GLUCOSE 110 mg/dL (70-99); POTASSIUM 3.7 mmol/L (3.5-5.1); SODIUM 136 mmol/L (136-145)
[2017-11-09 07:52] LABS: ALBUMIN 3.1 g/dL (3.4-5.0); ALBUMIN/GLOBULIN RATIO 0.9 (1.0-1.7); ALK PHOS 81 U/L (46-116); ALT (SGPT) 24 U/L (14-59); AST (SGOT) 14 U/L (15-37); LIPASE 250 U/L (73-393); TOTAL BILIRUBIN 0.3 mg/dL (0.2-1.0); TOTAL PROTEIN 6.5 g/dL (6.4-8.2)
[2017-11-09 07:55] LABS: BASO # 0.1 x10^3/uL (0.0-0.2); BASO % 1 % (0-3); EOS # 0.2 x10^3/uL (0.0-0.7); EOS % 3 % (0-3); HEMATOCRIT 34.8 % (36.0-47.0); HEMOGLOBIN 11.9 g/dL (12.0-15.5); LYMPH # 1.7 x10^3/uL (1.0-4.8); LYMPH % 21 % (24-48); MEAN CORPUSCULAR HEMOGLOBIN 32 pg (25-35); MEAN CORPUSCULAR HGB CONC 34 g/dL (31-37); MEAN CORPUSCULAR VOLUME 93 fL (79-100); MONO # 0.4 x10^3/uL (0.0-1.1); MONO % 6 % (0-9); NEUT # 5.5 x10^3uL (1.8-7.7); NEUT % 70 % (31-73); PLATELET COUNT 269 x10^3/uL (140-400); RED BLOOD COUNT 3.76 x10^6/uL (3.50-5.40); WHITE BLOOD COUNT 7.9 x10^3/uL (4.0-11.0)
[2017-11-09] MEDS: IOHEXOL 300 MG/ML 100ML VIAL. IV (08:37)
== END 2017-11-09 09:52 | disposition home or self-care (01) ==
LOC: ER 06:33
DX: R10.30 Lower abdominal pain, unspecified (principal); R11.2 Nausea with vomiting, unspecified; F41.0 Panic disorder [episodic paroxysmal anxiety]; F41.9 Anxiety disorder, unspecified; F31.9 Bipolar disorder, unspecified; F17.200 Nicotine dependence, unspecified, uncomplicated; Z90.49 Acquired absence of other specified parts of digestive tract; Z86.73 Personal history of transient ischemic attack (TIA), and cerebral infarction without residual deficits; Z90.710 Acquired absence of both cervix and uterus; Z71.6 Tobacco abuse counseling; Z76.5 Malingerer [conscious simulation]; Z88.0 Allergy status to penicillin; Z88.6 Allergy status to analgesic agent; Z88.8 Allergy status to other drugs, medicaments and biological substances
CPT/HCPCS: 36415; 74177; 80053; 81001; 83690; 85025; 96361; 96374; 96375; 99285-25; J2270; J2405; J7030; Q9967